=== PATIENT | female | born 1975 | race Caucasian/White ===

== ENCOUNTER 2024-05-10 07:09 | Outpatient (RCR) | payer BC, SELFPAY | END 2024-05-10 23:59 | disposition home or self-care (01) | LOC: RPT 07:09 | PROVIDERS: ATTENDING PHYSICIAN Urology | DX: N95.8 Other specified menopausal and perimenopausal disorders (principal); M62.89 Other specified disorders of muscle; R33.9 Retention of urine, unspecified; R39.198 Other difficulties with micturition; N39.41 Urge incontinence; Z73.6 Limitation of activities due to disability | CPT/HCPCS: 97161; 97530 ==

== ENCOUNTER 2024-06-14 12:47 | Outpatient (RCR) | payer BC, SELFPAY | END 2024-06-14 23:59 | disposition home or self-care (01) | LOC: RPT 12:47 | PROVIDERS: ATTENDING PHYSICIAN Urology | DX: N95.8 Other specified menopausal and perimenopausal disorders (principal); M62.89 Other specified disorders of muscle; R33.9 Retention of urine, unspecified; R39.198 Other difficulties with micturition; N39.42 Incontinence without sensory awareness; N39.41 Urge incontinence; Z73.6 Limitation of activities due to disability | CPT/HCPCS: 97110; 97140 ==

== ENCOUNTER 2024-07-05 13:13 | Outpatient (RCR) | payer BC, SELFPAY | END 2024-07-05 23:59 | disposition home or self-care (01) | LOC: RPT 13:13 | PROVIDERS: ATTENDING PHYSICIAN Urology | DX: N95.8 Other specified menopausal and perimenopausal disorders (principal); M62.89 Other specified disorders of muscle; R33.9 Retention of urine, unspecified; R39.198 Other difficulties with micturition; N39.41 Urge incontinence; Z73.6 Limitation of activities due to disability; N39.42 Incontinence without sensory awareness | CPT/HCPCS: 97110; 97112; 97140 ==

== ENCOUNTER 2024-08-12 18:01 | Outpatient (RCR) | payer BC, SELFPAY | END 2024-08-12 23:59 | disposition home or self-care (01) | LOC: RPT 18:01 | PROVIDERS: ATTENDING PHYSICIAN Urology | DX: N95.8 Other specified menopausal and perimenopausal disorders (principal); M62.89 Other specified disorders of muscle; R33.9 Retention of urine, unspecified; R39.198 Other difficulties with micturition; N39.41 Urge incontinence; Z73.6 Limitation of activities due to disability; N39.42 Incontinence without sensory awareness | CPT/HCPCS: 97110; 97112 ==

== ENCOUNTER 2024-09-10 09:32 | Outpatient (RCR) | payer BC, SELFPAY | END 2024-09-10 23:59 | disposition home or self-care (01) | LOC: RPT 09:32 | PROVIDERS: ATTENDING PHYSICIAN Urology | DX: N95.8 Other specified menopausal and perimenopausal disorders (principal); M62.89 Other specified disorders of muscle; R33.9 Retention of urine, unspecified; R39.198 Other difficulties with micturition; N39.41 Urge incontinence; Z73.6 Limitation of activities due to disability; N39.42 Incontinence without sensory awareness | CPT/HCPCS: 97110; 97140 ==

== ENCOUNTER 2024-09-30 16:45 | Outpatient (RCR) | payer BC, SELFPAY | END 2024-09-30 23:59 | disposition home or self-care (01) | LOC: RPT 16:45 | PROVIDERS: ATTENDING PHYSICIAN Urology | DX: N95.8 Other specified menopausal and perimenopausal disorders (principal); M62.89 Other specified disorders of muscle; R33.9 Retention of urine, unspecified; R39.198 Other difficulties with micturition; N39.41 Urge incontinence; Z73.6 Limitation of activities due to disability; N39.42 Incontinence without sensory awareness | CPT/HCPCS: 97110; 97112; 97140 ==

== ENCOUNTER 2024-11-12 08:53 | Outpatient (RCR) | payer BC, SELFPAY | END 2024-11-12 23:59 | disposition home or self-care (01) | LOC: RPT 08:53 | PROVIDERS: ATTENDING PHYSICIAN Urology | DX: N95.8 Other specified menopausal and perimenopausal disorders (principal); M62.89 Other specified disorders of muscle; R33.9 Retention of urine, unspecified; R39.198 Other difficulties with micturition; N39.41 Urge incontinence; Z73.6 Limitation of activities due to disability; N39.42 Incontinence without sensory awareness | CPT/HCPCS: 97014; 97110; 97112; 97530 ==

== ENCOUNTER 2024-12-16 16:52 | Outpatient (RCR) | payer BC, SELFPAY | END 2024-12-16 23:59 | disposition home or self-care (01) | LOC: RPT 16:52 | PROVIDERS: ATTENDING PHYSICIAN Urology | DX: N95.8 Other specified menopausal and perimenopausal disorders (principal); M62.89 Other specified disorders of muscle; R33.9 Retention of urine, unspecified; R39.198 Other difficulties with micturition; N39.41 Urge incontinence; Z73.6 Limitation of activities due to disability; N39.42 Incontinence without sensory awareness | CPT/HCPCS: 97110; 97112 ==